=== PATIENT | male | born 1945 | race Caucasian/White ===

== ENCOUNTER → 2017-01-22 | Outpatient (CLI) | payer MEDICARE, OTHER | END | disposition home or self-care (01) | LOC: MW.CHFP 09:02 | PROVIDERS: ATTEND Student in an Organized Health Care Education/Training Program | DX: Z12.5 Encounter for screening for malignant neoplasm of prostate (principal); J02.9 Acute pharyngitis, unspecified; K59.00 Constipation, unspecified; L82.1 Other seborrheic keratosis; R39.12 Poor urinary stream | CPT/HCPCS: 36415; 87081; 87880; 99214; G0103 ==

== ENCOUNTER → 2017-02-15 | Outpatient (CLI) | payer MEDICARE, OTHER | LOC: MW.CHENT 08:00 | PROVIDERS: ATTEND Otolaryngology | DX: J02.9 Acute pharyngitis, unspecified (principal); J38.7 Other diseases of larynx | CPT/HCPCS: 31575; 99204 ==

== ENCOUNTER → 2017-03-15 | Outpatient (CLI) | payer MEDICARE, OTHER | LOC: MW.CHENT 14:22 | PROVIDERS: ATTEND Otolaryngology | DX: K21.9 Gastro-esophageal reflux disease without esophagitis (principal); I10 Essential (primary) hypertension; R07.0 Pain in throat; J38.7 Other diseases of larynx; J02.9 Acute pharyngitis, unspecified | CPT/HCPCS: 31575; 36415; 82565; 84520; 99214 ==

== ENCOUNTER → 2017-03-17 | Outpatient (CLI) | payer MEDICARE, OTHER ==
[~2017-03-17] MED LIST: Iopamidol 755 Mg/ML 100 ML Bottle IVPUSH STA
--- NOTE | 2017-03-18 10:57 | CT ---
EXAMINATION: CT soft tissue neck with contrast HISTORY: Acute pharyngitis COMPARISON: None TECHNIQUE: Axial CT images obtained through the neck following the administration of 80 mL of Isovue -370 in the left antecubital fossa. Coronal and sagittal reconstructions obtained. FINDINGS: The oropharynx and nasopharynx appears symmetric. The hypopharynx normal. The larynx and u pper trachea appear grossly unremarkable. No definite focal cord lesion identified. The parotid, sub mandibular, and thyroid glands appear normal. No abnormal cervical lymphadenopathy. The visualized p aranasal sinuses and mastoid air cells are clear. Degenerative changes are noted within the cervical spine without suspicious osseous findings. The maynor ng apices are clear. IMPRESSION: 1. No abnormal mass or asymmetry identified. 2. Degenerative changes noted within the cervical spine. 3. No acute findings noted.
== END ==
LOC: MW.DI 15:56
PROVIDERS: ATTEND Otolaryngology
DX: J02.9 Acute pharyngitis, unspecified (principal); J38.7 Other diseases of larynx; M47.812 Spondylosis without myelopathy or radiculopathy, cervical region
CPT/HCPCS: 70491; Q9967

== ENCOUNTER 2017-03-24 08:09 | Day surgery (SDC) | payer MEDICARE, OTHER ==
[~2017-03-24 08:09] MED LIST changes: +EPINEPHrine 1:1000 1 MG/ML SDV ONE; -Iopamidol 755 Mg/ML 100 ML Bottle IVPUSH STA; +Lactated Ringers 1,000 ML IV SCH
--- NOTE | 2017-03-24 08:55 | PCM.HPR ---
H & P Addendum review - H & P Addendum Review Date of Original H & P: 03/15/17 Date Reviewed: 03/24/17 Time Reviewed: 09:15 Patient was examined: No Changes
[2017-03-24] MEDS ORDERED: fentaNYL 100 MCG/2 ML SDV ONE ×2 (09:25→10:55)
[2017-03-24] MEDS ORDERED: Midazolam 1 MG/ML 2 ML SDV ONE (09:25)
[2017-03-24] MEDS ORDERED: Propofol 200 MG/20 ML SDV ONE (09:25)
[2017-03-24] MEDS ORDERED: Rocuronium 10 MG/ML 10 ML Syringe ONE (09:26)
[2017-03-24] MEDS ORDERED: Dexamethasone 4 MG/ML 5 ML MDV ONE (09:27)
[2017-03-24] MEDS ORDERED: Ondansetron 4 MG/2 ML SDV ONE (09:27)
[2017-03-24] MEDS ORDERED: Mineral Oil/Petrolatum Ophth Oint 3.5 GM Tube ONE (09:28)
--- NOTE | 2017-03-24 09:51 | PCM.PREANE ---
Preanesthetic Assessment - Anesthesia/Transfusion/Family Hx Anesthesia History: Prior Anesthesia Without Reaction Family History of Anesthesia Reaction: No Transfusion History: No Prior Transfusion(s) - Review of Systems General: No Symptoms Pulmonary: No Symptoms Cardiovascular: No Symptoms Gastrointestinal: No symptoms Neurological: No Symptoms - Physical Assessment NPO Status Date: 03/23/17 NPO Status Time: 21:00 O2 Sat by Pulse Oximetry: 95 Respiratory Rate: 16 Vital Signs: Last Vital Signs Temp 36.3 C 03/24/17 08:44 Pulse 64 03/24/17 08:44 Resp 16 03/24/17 08:44 BP 124/68 03/24/17 08:44 Pulse Ox 95 03/24/17 08:44 Height: 1.73 m Weight: 97.069 kg ASA Class: 2 Mental Status: Alert & Oriented x3 Airway Class: Mallampati = 1 Dentition: Reports: Normal Dentition ROM/Head Extension: Full Lungs: Clear to auscultation, Normal respiratory effort Cardiovascular: Regular Rate, Regular Rhythm - Allergies Allergies/Adverse Reactions: Allergies Allergy/AdvReac Type Severity Reaction Status Date / Time erythromycin base Allergy Anxiety Verified 12/27/15 13:39 [Erythromycin Base] - Acknowledgements Anesthesia Type Planned: General Anesthesia Pt an Appropriate Candidate for the Planned Anesthesia: Yes Alternatives and Risks of Anesthesia Discussed w Pt/Guardian: Yes Pt/Guardian Understands and Agrees with Anesthesia Plan: Yes Additional Comments: had EKG 3 days ago in clinic, will check QTC on that EKG before transport to OR PreAnesthesia Questionnaire HEENT History: Reports: Other (See Below) Other HEENT History: constant need to clear his throat, frequent hoarseness, wears glasses, has dental implants Cardiovascular History: Reports: Afib, High Cholesterol, Hypertension Other Cardiovascular History: hx of arrythmia, on Fleckanide x 4-5 years without recurrance. Respiratory History: Reports: Sleep Apnea Other Respiratory History: does not use CPAP Gastrointestinal History: Reports: GERD Genitourinary History: Reports: BPH Musculoskeletal History: Reports: Back Pain, Chronic, Neck Pain, Chronic Neurological History: Reports: Headaches, Chronic, Migraines Psychiatric History: Reports: Depression Endocrine/Metabolic History: Reports: Obesity/BMI 30+ Hematologic History: Reports: None Immunologic History: Reports: None Oncologic (Cancer) History: Reports: None Dermatologic History: Reports: None - Past Surgical History Head Surgeries/Procedures: Reports: None HEENT Surgical History: Reports: Other (See Below) Other HEENT Surgeries/Procedures: Nose surgery Cardiovascular Surgical History: Reports: None Respiratory Surgical History: Reports: None GI Surgical History: Reports: None Male Surgical History: Reports: None Endocrine Surgical History: Reports: None Neurological Surgical History: Reports: None Musculoskeletal Surgical History: Reports: None Oncologic Surgical History: Reports: None Dermatological Surgical History: Reports: None - SUBSTANCE USE Smoking Status *Q: Never Smoker Recreational Drug Use History: No - HOME MEDS Home Medications: Home Meds Aspirin [Low Dose Aspirin EC] 81 mg PO DAILY 12/27/15 [History] Escitalopram [Lexapro] 10 mg PO DAILY 12/27/15 [History] Flecainide Acetate 100 mg PO BID 12/27/15 [History] Fluticasone Propionate [Flonase] 1 spray NASBOTH BID 12/27/15 [History] Losartan Potassium 50 mg PO DAILY 12/27/15 [History] Omeprazole [Prilosec] 40 mg PO BID 12/27/15 [History] Pravastatin Sodium [Pravachol] 40 mg PO BEDTIME 12/27/15 [History] Propranolol HCl [Propranolol HCl ER] 120 mg PO DAILY 12/27/15 [History] SUMAtriptan Succinate [Imitrex] 100 mg PO ASDIRECTED PRN 12/27/15 [History] Tamsulosin HCl 0.4 mg PO DAILY 12/27/15 [History] - CURRENT (IN HOUSE) MEDS Current Meds: Current Medications Lactated Ringer's (Ringers, Lactated) 1,000 mls @ 100 mls/hr IV ASDIRECTED PASTORA Last Admin: 03/24/17 08:35 Dose: 100 mls/hr Discontinued Medications Dexamethasone (Dexamethasone) Confirm Administered Dose 20 mg .ROUTE .STK-MED ONE Stop: 03/24/17 09:28 Epinephrine HCl (Adrenalin 1:1000) Confirm Administered Dose 3 mg .ROUTE .STK- MED ONE Stop: 03/24/17 07:13 Fentanyl (Sublimaze) Confirm Administered Dose 100 mcg .ROUTE .STK-MED ONE Stop: 03/24/17 09:26 Lidocaine HCl (Xylocaine-Mpf 1%) Confirm Administered Dose 5 ml .ROUTE .STK-MED ONE Stop: 03/24/17 09:27 Midazolam HCl (Versed 1 Mg/Ml) Confirm Administered Dose 2 mg .ROUTE .STK-MED ONE Stop: 03/24/17 09:26 Mineral Oil/White Petrolatum (Lacri-Lube S.O.P Oint) Confirm Administered Dose 3.5 gm .ROUTE .STK-MED ONE Stop: 03/24/17 09:29 Ondansetron HCl (Zofran) Confirm Administered Dose 4 mg .ROUTE .STK-MED ONE Stop: 03/24/17 09:28 Propofol (Diprivan 20 Ml) Confirm Administered Dose 200 mg .ROUTE .STK-MED ONE Stop: 03/24/17 09:26 Rocuronium [place] (Zemuron) Confirm Administered Dose 100 mg .ROUTE .STK-MED ONE Stop: 03/24/17 09:27
[2017-03-24] MEDS ORDERED: fentaNYL 100 MCG/2 ML SDV IVPUSH PRN (10:09)
--- NOTE | 2017-03-24 10:17 | PCM.SN ---
- Free Text/Narrative Note: QTC was 460 on 03/22, OK to use sevoflurane and ondansetron as needed.
[2017-03-24] MEDS ORDERED: Succinylcholine/Normal Saline 200 MG/10 ML Syringe ONE (10:24)
--- NOTE | 2017-03-24 10:27 | PCM.OPNOTE ---
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 A time out was performed.General anesthesia was administered with a size 5 MLB tube and this was taped on the left angle of mouth. Patient was appropriately positioned. Upper and lower teeth / gum worrell were placed. A Lisy laryngoscope was positioned and suspended. A zero degree laryngeal telescope was used to examine the larynx and pictures were taken. An operating microscope was brought in and biopsies were obtained from the left vocal cord. Post operative photos were taken. This concluded the procedure. Hemostasis was ensured. The laryngoscope and gum worrell were removed. Lips, gums and teeth were intact. Follow up: In 1 week for pathology Disposition : PACU for recovery
[2017-03-24] MEDS ORDERED: Neostigmine Methylsulfate 1 MG/ML 5 ML Syringe ONE (10:43)
--- NOTE | 2017-03-24 11:57 | PCM.POSTAN ---
POST ANESTHESIA ASSESSMENT - MENTAL STATUS Mental Status: alert, oriented - RESPIRATORY Respiratory Status: respiratory rate WNL, airway patent, O2 saturation stable - CARDIOVASCULAR CV Status: pulse rate WNL, blood pressure stable - GASTROINTESTINAL GI Status: no symptoms - PAIN Pain Score: 0 - POST OP HYDRATION Hydration Status: adequate & stable
[2017-03-24 13:43] VITALS: BP 119/65
--- NOTE | 2017-03-24 13:56 | PCM48HPAN ---
Post Anesthesia Note - EVALUATION WITHIN 48HRS OF ANESTHETIC Vital Signs in Normal Range: Yes Patient Participated in Evaluation: Yes Respiratory Function Stable: Yes Airway Patent: Yes Cardiovascular Function Stable: Yes Hydration Status Stable: Yes Pain Control Satisfactory: Yes Nausea and Vomiting Control Satisfactory: Yes Mental Status Recovered: Yes
== END 2017-03-24 13:43 | disposition home or self-care (01) ==
LOC: MW.SDS 08:09
PROVIDERS: ATTEND Otolaryngology
DX: J38.3 Other diseases of vocal cords (principal); I10 Essential (primary) hypertension; F32.9 Major depressive disorder, single episode, unspecified; E78.00 Pure hypercholesterolemia, unspecified; K21.9 Gastro-esophageal reflux disease without esophagitis; G47.30 Sleep apnea, unspecified; Z88.1 Allergy status to other antibiotic agents; Z87.891 Personal history of nicotine dependence; Z79.899 Other long term (current) drug therapy
CPT/HCPCS: 31536; 88305; J0171; J1100; J2250; J2405; J3010; J7120; 00320; J2704

== ENCOUNTER → 2017-03-30 | Outpatient (CLI) | payer MEDICARE, OTHER | LOC: MW.CHENT 08:00 | PROVIDERS: ATTEND Otolaryngology | DX: J38.7 Other diseases of larynx (principal) | CPT/HCPCS: G0463 ==

== ENCOUNTER 2018-02-11 10:30 | Day surgery (SDC) | payer MEDICARE, OTHER ==
[~2018-02-11 10:30] MED LIST changes: -EPINEPHrine 1:1000 1 MG/ML SDV ONE; +Propofol 200 MG/20 ML SDV ONE
[2018-02-11] MEDS ORDERED: fentaNYL 100 MCG/2 ML SDV ONE (10:52)
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
--- NOTE | 2018-02-11 11:31 | PCM.OPNOTE ---
- General Post-Op/Procedure Note Date of Surgery/Procedure: 02/11/18 Operative Procedure(s): egd w bx Findings: see dict [id number] Pre Op Diagnosis: dysphagia/gerd Post-Op Diagnosis: Same Anesthesia Technique: Moderate Sedation Primary Surgeon: Alirio Roy Pathology: egd bx Complications: None Condition: Good
[2018-02-11 11:50] VITALS: BP 174/78
--- NOTE | 2018-02-11 13:25 | OR ---
SURGEON: Alirio Roy MD DATE OF PROCEDURE: 02/11/2018 PREOPERATIVE DIAGNOSES: 1. Dysphagia. 2. Acid reflux. POSTOPERATIVE DIAGNOSIS: Gastritis. PROCEDURE PERFORMED: EGD with biopsy. COMPLICATIONS: None. PROCEDURE IN DETAIL: EGD: The patient was taken to the endoscopy room, and with the MIX MAKER, Diprivan was administered. A well-lubricated EGD scope was gently inserted through the oropharynx, down the esophagus, passing through the gastroesophageal junction, into the stomach. The mucosa was examined upon the passage. Any etiology will be noted. Once in the stomach, we continued to advance to the distal antrum, passed through the pylorus into the second portion of the duodenum. Again, the mucosa was examined for any abnormality and etiology. The scope was then retrieved back to the stomach and then retroflexed to look at the fundus of the stomach. If a biopsy was indicated, we will biopsy the antrum, body, and gastroesophageal junction. The air will be sucked out while the scope is retrieved to reduce the patient's discomfort. The patient tolerated the procedure well. There were no intraoperative complications. Dr. Roy was present through the whole procedure. Prior to surgery, a time-out had been called, the patient identified, procedure identified and antibiotic administered. FINDINGS: The patient is easily sedated with MIX MAKER and Diprivan. The patient is soundly snoring. Oropharynx and proximal esophagus are free of disease. No stricture, inflammation, and distal esophagus at a distance of 40 with some skipped lesion of salmon color change suggests moderate acid reflux. Stomach rugae is normal in appearance. There is no blood, bile, or food particle. Antrum is very inflamed and several areas are thickened and inflamed, those places were biopsied. Duodenum was grossly normal. Scope retrieved back to the stomach and retroflexed and looked at the stomach. There is no hiatal hernia. Biopsy done of antrum and lesser curvature where the inflammation and body and GE junction at 40 and sucked out the air while scope pulling out. MONTY / ARELI /[id number]
== END 2018-02-11 12:09 | disposition home or self-care (01) ==
LOC: MW.SDS 10:30
PROVIDERS: ATTEND Surgery
DX: K29.50 Unspecified chronic gastritis without bleeding (principal); K20.9 Esophagitis, unspecified; F32.9 Major depressive disorder, single episode, unspecified; K21.9 Gastro-esophageal reflux disease without esophagitis; E78.00 Pure hypercholesterolemia, unspecified; I10 Essential (primary) hypertension; G47.30 Sleep apnea, unspecified; Z88.1 Allergy status to other antibiotic agents; Z79.899 Other long term (current) drug therapy; Z87.891 Personal history of nicotine dependence
CPT/HCPCS: 43239; J3010; J7120; 00731; 88305; 88312; J2704

== ENCOUNTER 2020-09-21 00:20 | Emergency (ER) | payer MEDICARE, OTHER ==
[2020-09-21] MEDS ORDERED: Sodium Chloride 0.9% 10 ML Syringe FLUSH PRN (00:26)
[2020-09-21] MEDS ORDERED: Sodium Chloride 0.9% 2.5 ML Syringe FLUSH PRN (00:26)
[2020-09-21] MEDS ORDERED: Ondansetron 4 MG/2 ML SDV IVPUSH ONE (00:26)
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
[2020-09-21 01:13] LABS: BLOOD UREA NITROGEN,BUN 12 mg/dL (7.0-18.0); CHLORIDE,CL 97 mmol/L (98-107); GLUCOSE RANDOM 134 mg/dL (74-106); LIPASE 177 U/L (73-393); POTASSIUM,K 4.1 mmol/L (3.5-5.1); SODIUM,NA 130 mmol/L (136-148)
--- NOTE | 2020-09-21 01:23 | CR ---
INDICATION: Weakness and COVID-19 positive TECHNIQUE: Chest radiograph 1 view COMPARISON: 03/22/2019 FINDINGS: Mediastinum: The mediastinum is normal in appearance. The heart silhouette is normal in size and morphology. Lung: Patchy, wispy airspace densities are present within the right midlung zone and bilateral lung bases suggestive of COVID-19 infection. No sign of pleural effusion seen. No pneumothorax is identified. Bone and Soft tissue: Unremarkable for age. IMPRESSION: 1. Patchy, wispy airspace densities are present within the right midlung zone and bilateral lung bases suggestive of COVID-19 infection. Dictated by Jt Yanez MD @ 09/21/2020 1:21:52 AM Dictated by: Jt Yanez MD @ 09/21/2020 01:22:12 (Electronically Signed)
[2020-09-21] MEDS ORDERED: Promethazine 25 MG Tab PO STA (01:51)
[2020-09-21 02:08] VITALS: BP 119/51; PULSE 76
== END 2020-09-21 02:33 | disposition home or self-care (01) ==
LOC: MW.ED 00:20
DX: U07.1 COVID-19 (principal); J12.89 Other viral pneumonia; E87.1 Hypo-osmolality and hyponatremia; I10 Essential (primary) hypertension; E78.00 Pure hypercholesterolemia, unspecified; I48.91 Unspecified atrial fibrillation; F41.9 Anxiety disorder, unspecified; F32.9 Major depressive disorder, single episode, unspecified; E66.9 Obesity, unspecified; Z68.30 Body mass index [BMI] 30.0-30.9, adult; Z88.1 Allergy status to other antibiotic agents; Z79.899 Other long term (current) drug therapy; Z79.82 Long term (current) use of aspirin
CPT/HCPCS: 36415; 71045; 80053; 83690; 83880; 84484; 85025; 93005; 96374; 99285; A9270; J2405; 93010; 99283

== ENCOUNTER 2022-10-08 11:19 | Inpatient (IN) | payer MEDICARE, OTHER ==
[2022-10-08] MEDS ORDERED: cefTRIAXone 1 GM in Sodium Chloride 0.9% 100 ML IV ONE ×2 (11:25→12:00)
[2022-10-08] MEDS ORDERED: Sodium Chloride 0.9% 2.5 ML Syringe FLUSH PRN (11:25)
[2022-10-08] MEDS ORDERED: Sodium Chloride 0.9% 1,000 ML IV ONE ×3 (11:25→16:37)
[2022-10-08] MEDS ORDERED: Sodium Chloride 0.9% 10 ML Syringe FLUSH PRN (11:25)
[2022-10-08] MEDS ORDERED: Ondansetron 4 MG/2 ML SDV IVPUSH ONE (11:32)
[2022-10-08] MEDS ORDERED: HYDROmorphone 1 MG/ML Syringe IVPUSH ONE (11:35)
[2022-10-08] MEDS ORDERED: cefTRIAXone 1 GM AdvVial IV ONE (11:49)
[2022-10-08] MEDS ORDERED: Sodium Chloride 0.9% 100 ML ONE (11:51)
[2022-10-08] MEDS ORDERED: VANCOmycin 2 GM/400 ML 2 GM in Premix Bag 1 BAG IV ONE (12:00)
[2022-10-08 12:28] LABS: CORONAVIRUS COVID-19 NAA NEGATIVE (NEGATIVE); INFLUENZA A NAA NEGATIVE (NEGATIVE); INFLUENZA B NAA NEGATIVE (NEGATIVE)
[2022-10-08 12:41] LABS: CARBON DIOXIDE,CO2 22.8 mmol/L (21.0-32.0); POTASSIUM,K 3.8 mmol/L (3.5-5.1)
[2022-10-08] MEDS ORDERED: Iopamidol 755 MG/ML 500 ML Multipack Bottle IVPUSH STA (13:55)
[2022-10-08] MEDS ORDERED: Acetaminophen 500 MG Tab PO ONE (15:27)
[2022-10-08] MEDS ORDERED: Pantoprazole 40 MG Tab.CR PO STA (16:46)
[2022-10-08] MEDS ORDERED: Piperacillin/Tazobactam 4.5 GM in Sodium Chloride 0.9% 100 ML IV ONE (17:28)
[2022-10-08] MEDS ORDERED: Enoxaparin 100 MG/1 ML Syringe SUBCUT ONE (19:50)
[2022-10-08] MEDS ORDERED: Norepinephrine 4 MG in Dextrose 5% in Water 246 ML IV SCH ×2 (20:00)
[2022-10-08] MEDS ORDERED: Albuterol/Ipratropium 3.0-0.5 MG/3 ML Neb Soln NEB PRN (22:32)
[2022-10-08] MEDS ORDERED: Acetaminophen/Butalbital/Caffeine 325-50-40 MG Tab PO PRN (23:00)
[2022-10-08] MEDS: Lactated Ringers 1,000 ML IV SCH (23:12)
[2022-10-08] MEDS: Pantoprazole 40 MG in Sodium Chloride 0.9% 10 ML IVPUSH SCH (23:16)
[2022-10-09] MEDS ORDERED: Piperacillin/Tazobactam 4.5 GM in Sodium Chloride 0.9% 100 ML IV SCH (01:00)
[2022-10-09] MEDS ORDERED: Sodium Chloride 0.9% 500 ML IV SCH (04:45)
[2022-10-09] MEDS: Ondansetron 4 MG/2 ML SDV IVPUSH PRN (06:55)
[2022-10-09] MEDS: Piperacillin/Tazobactam 4.5 GM in Sodium Chloride 0.9% 100 ML IV SCH ×2 (08:15→14:31)
[2022-10-09] MEDS ORDERED: Promethazine 25 MG/ML SDV IM ONE (08:18)
[2022-10-09] MEDS: Enoxaparin 40 MG/0.4 ML Syringe SUBCUT SCH (08:18)
[2022-10-09 08:54] LABS: CARBON DIOXIDE,CO2 22.4 mmol/L (21.0-32.0); POTASSIUM,K 3.6 mmol/L (3.5-5.1)
[2022-10-09] MEDS ORDERED: Sodium Chloride 0.9% 10 ML Syringe FLUSH PRN (09:17)
[2022-10-09] MEDS ORDERED: Sodium Chloride 0.9% 2.5 ML Syringe FLUSH PRN (09:17)
[2022-10-09] MEDS: Lactated Ringers 1,000 ML IV SCH ×2 (09:51→21:28)
[2022-10-09] MEDS ORDERED: Potassium Phosphates 15 MMOLE, Magnesium Sulfate 2 GM in Sodium Chloride 0.9% 500 ML IV ONE (10:00)
[2022-10-09] MEDS ORDERED: Ketorolac 30 MG/ML SDV IVPUSH ONE (10:07)
[2022-10-09] MEDS ORDERED: Metoclopramide 10 MG/2 ML SDV IVPUSH ONE (10:07)
[2022-10-09] MEDS: Acetaminophen 325 MG Tab PO PRN (17:14)
[2022-10-09] MEDS ORDERED: Lactated Ringers 1,000 ML IV SCH (17:30)
[2022-10-09] MEDS ORDERED: Meropenem Premix 50 ML IV ONE ×2 (17:37→18:15)
[2022-10-09] MEDS ORDERED: Meropenem Premix 50 ML IV SCH ×2 (17:45→17:47)
[2022-10-09] MEDS: Meropenem 2 GM in Sodium Chloride 0.9% 100 ML IV SCH (18:14)
[2022-10-09] MEDS: Pantoprazole 40 MG in Sodium Chloride 0.9% 10 ML IVPUSH SCH (21:51)
[2022-10-10] MEDS: Meropenem 2 GM in Sodium Chloride 0.9% 100 ML IV SCH ×3 (01:44→17:23)
[2022-10-10] MEDS ORDERED: Metoprolol Tartrate 5 MG/5 ML SDV IVPUSH ONE (05:20)
[2022-10-10] MEDS: Aluminum Hydroxide/Magnesium Hydroxide/Simethicone XS Susp 30 ML Cup PO SCH ×2 (05:29→08:39)
[2022-10-10] MEDS: Metoprolol Succinate 50 MG Tab.ER PO SCH (05:29)
[2022-10-10 07:17] LABS: CARBON DIOXIDE,CO2 28.1 mmol/L (21.0-32.0); POTASSIUM,K 3.6 mmol/L (3.5-5.1)
[2022-10-10] MEDS: Lactated Ringers 1,000 ML IV SCH ×3 (07:28→23:53)
[2022-10-10] MEDS: guaiFENesin/Dextromethorphan 100-10 MG/5 ML Soln 10 ML Cup PO PRN ×2 (07:48→15:29)
[2022-10-10] MEDS: Enoxaparin 40 MG/0.4 ML Syringe SUBCUT SCH (08:39)
[2022-10-10] MEDS: Acetaminophen/Butalbital/Caffeine 325-50-40 MG Tab PO PRN ×2 (10:19→18:29)
[2022-10-10] MEDS ORDERED: Potassium Phosphates 15 MMOLE in Sodium Chloride 0.9% 500 ML IV ONE (12:30)
[2022-10-10] MEDS ORDERED: Aluminum Hydroxide/Magnesium Hydroxide/Simethicone XS Susp 30 ML Cup PO PRN (12:30)
[2022-10-10] MEDS: Tamsulosin 0.4 MG Cap.ER PO SCH (12:33)
[2022-10-10] MEDS: VANCOmycin 1.5 GM/300 ML 1.5 GM in Premix Bag 1 BAG IV SCH (12:34)
[2022-10-10] MEDS: Phosphorus #1 250 MG Tab PO SCH ×3 (12:34→23:49)
[2022-10-10] MEDS: Escitalopram 10 MG Tab PO SCH (12:34)
[2022-10-10] MEDS: Ondansetron 4 MG/2 ML SDV IVPUSH PRN (16:44)
[2022-10-10] MEDS: Acetaminophen 325 MG Tab PO PRN (16:50)
[2022-10-10] MEDS ORDERED: Ondansetron 4 MG/2 ML SDV IVPUSH ONE (18:16)
[2022-10-10] MEDS ORDERED: Ketorolac 30 MG/ML SDV IVPUSH ONE (18:46)
[2022-10-10] MEDS: Pravastatin 40 MG Tab PO SCH (21:09)
[2022-10-10] MEDS: Pantoprazole 40 MG in Sodium Chloride 0.9% 10 ML IVPUSH SCH (23:43)
[2022-10-11] MEDS: Meropenem 2 GM in Sodium Chloride 0.9% 100 ML IV SCH ×3 (02:24→18:07)
[2022-10-11 06:35] LABS: CARBON DIOXIDE,CO2 30.5 mmol/L (21.0-32.0); POTASSIUM,K 3.8 mmol/L (3.5-5.1)
[2022-10-11] MEDS: Phosphorus #1 250 MG Tab PO SCH ×3 (07:04→18:14)
[2022-10-11] MEDS: VANCOmycin 1.5 GM/300 ML 1.5 GM in Premix Bag 1 BAG IV SCH (07:05)
[2022-10-11] MEDS ORDERED: Phosphorus #1 250 MG Tab PO ONE ×2 (07:43→08:22)
[2022-10-11] MEDS: Metoprolol Succinate 50 MG Tab.ER PO SCH (08:04)
[2022-10-11] MEDS: Tamsulosin 0.4 MG Cap.ER PO SCH (08:05)
[2022-10-11] MEDS: Enoxaparin 40 MG/0.4 ML Syringe SUBCUT SCH (08:05)
[2022-10-11] MEDS: Escitalopram 10 MG Tab PO SCH (08:05)
[2022-10-11] MEDS ORDERED: Polyethylene Glycol 3350 Powder 17 GM Packet PO PRN (09:26)
[2022-10-11] MEDS: Acetaminophen/Butalbital/Caffeine 325-50-40 MG Tab PO PRN ×3 (10:32→23:03)
[2022-10-11] MEDS: Acetaminophen 325 MG Tab PO PRN (12:44)
[2022-10-11] MEDS: Pravastatin 40 MG Tab PO SCH (20:45)
[2022-10-11] MEDS: Pantoprazole 40 MG in Sodium Chloride 0.9% 10 ML IVPUSH SCH (23:03)
[2022-10-11] MEDS: guaiFENesin/Dextromethorphan 100-10 MG/5 ML Soln 10 ML Cup PO PRN (23:17)
[2022-10-12] MEDS: VANCOmycin 1.5 GM/300 ML 1.5 GM in Premix Bag 1 BAG IV SCH (01:51)
[2022-10-12] MEDS: Meropenem 2 GM in Sodium Chloride 0.9% 100 ML IV SCH (02:19)
[2022-10-12 06:19] LABS: CARBON DIOXIDE,CO2 27.8 mmol/L (21.0-32.0); POTASSIUM,K 3.6 mmol/L (3.5-5.1)
[2022-10-12] MEDS ORDERED: Potassium Chloride 20 MEQ Tab.ER PO ONE (07:53)
[2022-10-12] MEDS: Tamsulosin 0.4 MG Cap.ER PO SCH (08:58)
[2022-10-12] MEDS: Metoprolol Succinate 50 MG Tab.ER PO SCH (08:58)
[2022-10-12] MEDS: Enoxaparin 40 MG/0.4 ML Syringe SUBCUT SCH (08:59)
[2022-10-12] MEDS: Phosphorus #1 250 MG Tab PO SCH ×4 (08:59→23:24)
[2022-10-12] MEDS: Escitalopram 10 MG Tab PO SCH (08:59)
[2022-10-12] MEDS: Levofloxacin 750 MG Tab PO SCH (10:18)
[2022-10-12] MEDS: Pravastatin 40 MG Tab PO SCH (20:22)
[2022-10-12] MEDS: Acetaminophen/Butalbital/Caffeine 325-50-40 MG Tab PO PRN (23:23)
[2022-10-13 06:24] LABS: CARBON DIOXIDE,CO2 28.1 mmol/L (21.0-32.0); POTASSIUM,K 3.7 mmol/L (3.5-5.1)
[2022-10-13] MEDS: Acetaminophen/Butalbital/Caffeine 325-50-40 MG Tab PO PRN (06:53)
[2022-10-13] MEDS ORDERED: Pantoprazole 40 MG Tab.CR PO SCH (07:30)
[2022-10-13] MEDS ORDERED: Potassium Chloride 20 MEQ Tab.ER PO ONE (08:11)
[2022-10-13] MEDS: Tamsulosin 0.4 MG Cap.ER PO SCH (08:26)
[2022-10-13] MEDS: Escitalopram 10 MG Tab PO SCH (08:26)
[2022-10-13] MEDS: Metoprolol Succinate 50 MG Tab.ER PO SCH (08:26)
[2022-10-13] MEDS: Enoxaparin 40 MG/0.4 ML Syringe SUBCUT SCH (08:27)
[2022-10-13] MEDS: Levofloxacin 750 MG Tab PO SCH (09:15)
[2022-10-13 11:48] VITALS: BP 156/80; PULSE 75
== END 2022-10-13 14:30 | disposition home or self-care (01) | DRG 862 ==
LOC: MW.ED 11:19 → MW.ICU 20:05 → MW.MS 10-11 11:25
PROVIDERS: ADMIT Student in an Organized Health Care Education/Training Program; ATTEND Student in an Organized Health Care Education/Training Program
PROC: 02HV33Z Insertion of Infusion Device into Superior Vena Cava, Percutaneous Approach (ICD-10-PCS; principal; 2022-10-08)
PROC: 3E033XZ Introduction of Vasopressor into Peripheral Vein, Percutaneous Approach (ICD-10-PCS; 2022-10-08)
DX: A41.9 Sepsis, unspecified organism (principal); Z98.890 Other specified postprocedural states; T81.44XA Sepsis following a procedure, initial encounter; A41.51 Sepsis due to Escherichia coli [E. coli]; R65.21 Severe sepsis with septic shock; T81.40XA Infection following a procedure, unspecified, initial encounter; I48.91 Unspecified atrial fibrillation; N40.0 Benign prostatic hyperplasia without lower urinary tract symptoms; E78.00 Pure hypercholesterolemia, unspecified; Z20.822 Contact with and (suspected) exposure to COVID-19; I10 Essential (primary) hypertension; G47.30 Sleep apnea, unspecified; K21.9 Gastro-esophageal reflux disease without esophagitis; F41.9 Anxiety disorder, unspecified; F32.A Depression, unspecified; N41.9 Inflammatory disease of prostate, unspecified; E83.42 Hypomagnesemia; E83.39 Other disorders of phosphorus metabolism; E78.2 Mixed hyperlipidemia; G43.909 Migraine, unspecified, not intractable, without status migrainosus; Z79.82 Long term (current) use of aspirin; Z87.442 Personal history of urinary calculi; Z79.899 Other long term (current) drug therapy; Z88.1 Allergy status to other antibiotic agents
CPT/HCPCS: 0240U; 36415; 71045; 71046; 74177; 80048; 80053; 80202; 81001; 83605; 83735; 84100; 84484; 85025; 85610; 87040; 87077; 87086; 87154; 87186; 93005; 93306; 96361; 96365; 96366; 96367; 96368; 96375; 97161; 99285; A9270-GY; C9113; J0696; J1170; J1650; J1885; J2185; J2405; J2543; J2550; J2765; J3370; J3475; J3490; J7030; J7040; J7050; J7120; Q9967

== ENCOUNTER 2023-12-15 08:29 | Day surgery (SDC) | payer MEDICARE, OTHER ==
[2023-12-15] MEDS ORDERED: propofoL 50 ML ONE (08:41)
[2023-12-15] MEDS: Lactated Ringers 1,000 ML IV SCH (08:47)
[2023-12-15 11:21] VITALS: PULSE 62
[2023-12-15 11:31] VITALS: BP 163/74
== END 2023-12-15 11:45 | disposition home or self-care (01) ==
LOC: MW.SDS 08:29
PROVIDERS: ATTEND Surgery
DX: Z12.11 Encounter for screening for malignant neoplasm of colon (principal); D12.0 Benign neoplasm of cecum; K57.30 Diverticulosis of large intestine without perforation or abscess without bleeding; E11.9 Type 2 diabetes mellitus without complications; I10 Essential (primary) hypertension; N40.0 Benign prostatic hyperplasia without lower urinary tract symptoms; K21.9 Gastro-esophageal reflux disease without esophagitis; I48.0 Paroxysmal atrial fibrillation; I25.10 Atherosclerotic heart disease of native coronary artery without angina pectoris; F32.A Depression, unspecified; E66.9 Obesity, unspecified; Z68.33 Body mass index [BMI] 33.0-33.9, adult; E78.00 Pure hypercholesterolemia, unspecified; Z87.891 Personal history of nicotine dependence; Z79.899 Other long term (current) drug therapy; Z88.1 Allergy status to other antibiotic agents
CPT/HCPCS: 45380; 88305; J2704; J7120; 00811; 99100

== ENCOUNTER 2024-08-10 13:26 | Inpatient (IN) | payer MEDICARE, OTHER ==
[2024-08-10] MEDS: Ondansetron 4 MG/2 ML SDV IVPUSH ONE (13:40)
[2024-08-10] MEDS: Ketorolac 30 MG/ML SDV IVPUSH ONE (13:40)
[2024-08-10] MEDS: Sodium Chloride 0.9% 1,000 ML IV ONE (13:40)
[2024-08-10 14:03] LABS: BASOPHILS ABSOLUTE AUTO 0.07 K/uL (0.00-0.20); BASOPHILS PERCENT AUTO 0.7 % (0.0-1.0); EOSINOPHILS ABSOLUTE AUTO 0.11 K/uL (0.00-0.45); EOSINOPHILS PERCENT AUTO 1.1 % (0.0-6.0); HEMATOCRIT 40.5 % (42.0-52.0); HEMOGLOBIN 14.1 g/dL (14.0-18.0); IMMATURE GRAN ABSOLUTE AUTO 0.03 K/uL (0.00-0.05); IMMATURE GRAN PERCENT AUTO 0.3 % (0.0-0.4); LYMPHOCYTES ABSOLUTE AUTO 1.27 K/uL (1.00-4.80); LYMPHOCYTES PERCENT AUTO 12.2 % (24.0-44.0); MEAN CORPUSCULAR HEMOGLOBIN 29.7 pg (28.0-32.0); MEAN CORPUSCULAR HGB CONC 34.8 g/dL (32.0-36.0); MEAN CORPUSCULAR VOLUME 85.3 fL (83.0-99.0); MEAN PLATELET VOLUME 10.9 fL (9.4-12.4); MONOCYTES PERCENT AUTO 11.5 % (0.0-8.0); NEUTROPHILS ABSOLUTE AUTO 7.77 K/uL (1.80-7.70); NEUTROPHILS PERCENT AUTO 74.2 % (41.0-71.0); PLATELET COUNT,PLT 162 K/uL (150-400); RED BLOOD CELL COUNT 4.75 M/uL (4.52-5.90); WHITE BLOOD CELL COUNT,WBC 10.45 K/uL (3.9-11.3)
[2024-08-10 14:28] LABS: A/G RATIO 1.2 (0.9-1.6); ALANINE AMINOTRANSFERASE,ALT 23 IU/L (14-63); ALBUMIN 3.9 g/dL (3.4-5.0); ALKALINE PHOSPHATASE 72 U/L (46-116); ASPARTATE AMNIOTRANSFERASE,AST 21 IU/L (15-37); BILIRUBIN TOTAL 0.7 mg/dL (0.2-1.0); BLOOD UREA NITROGEN,BUN 14 mg/dL (7.0-18.0); CALCIUM 8.6 mg/dL (8.5-10.1); CARBON DIOXIDE,CO2 22.2 mmol/L (21.0-32.0); CHLORIDE,CL 100 mmol/L (98-107); CREATININE 1.1 mg/dL (0.8-1.3); GLUCOSE RANDOM 160 mg/dL (74-106); LIPASE 36 U/L (16-77); POTASSIUM,K 3.6 mmol/L (3.5-5.1); PROTEIN TOTAL,TP 7.2 g/dL (6.4-8.2); SODIUM,NA 135 mmol/L (136-148)
[2024-08-10 14:29] LABS: ESTIMATED GFR 69 mL/min (>60)
[2024-08-10 14:35] LABS: CORONAVIRUS COVID-19 NAA POSITIVE (NEGATIVE); INFLUENZA A NAA NEGATIVE (NEGATIVE); INFLUENZA B NAA NEGATIVE (NEGATIVE)
[2024-08-10 15:33] LABS: BILIRUBIN,URINE NEGATIVE (NEGATIVE); COLOR,URINE YELLOW; GLUCOSE,URINE NEGATIVE (NEGATIVE); KETONES,URINE 40 mg/dL (NEGATIVE); LEUKOCYTE ESTERASE,URINE NEGATIVE (NEGATIVE); NITRITE,URINE NEGATIVE (NEGATIVE); OCCULT BLOOD,URINE SMALL (NEGATIVE); PH,URINE 8.5 (5.0-8.0); PROTEIN,URINE NEGATIVE (NEGATIVE); UROBILINOGEN,URINE 0.2 EU/dL (<2.0)
[2024-08-10 15:37] LABS: APPEARANCE,URINE HAZY
[2024-08-10 15:41] LABS: BACTERIA,URINE FEW (NEGATIVE); EPITHELIAL CELLS,URINE RARE (NONE-FEW); WBC,URINE 0-1 (0-5/HPF)
[2024-08-10] MEDS: Acetaminophen 500 MG Tab PO ONE (15:46)
[2024-08-10] MEDS ORDERED: Albuterol/Ipratropium 3.0-0.5 MG/3 ML Neb Soln NEB PRN (16:01)
[2024-08-10] MEDS ORDERED: Polyethylene Glycol 3350 Powder 17 GM Packet PO PRN (16:01)
[2024-08-10] MEDS ORDERED: Ondansetron 4 MG/2 ML SDV IVPUSH PRN (16:01)
[2024-08-10] MEDS ORDERED: Acetaminophen 650 MG Supp RECTAL PRN (16:01)
[2024-08-10] MEDS ORDERED: Acetaminophen 325 MG Tab PO PRN (16:01)
[2024-08-10] MEDS ORDERED: oxyCODONE 5 MG Tab PO PRN (16:01)
[2024-08-10] MEDS ORDERED: Non-Formulary Medication 1 Each (Docusate Sodium [Stool Softener] 100 MG Tablet) PO PRN (16:08)
[2024-08-10] MEDS ORDERED: Sodium Chloride 0.9% 1,000 ML IV SCH (16:15)
[2024-08-10] MEDS: Pantoprazole 40 MG in Sodium Chloride 0.9% 10 ML IVPUSH SCH (17:43)
[2024-08-10] MEDS: Enoxaparin 40 MG/0.4 ML Syringe SUBCUT SCH (17:43)
[2024-08-10] MEDS: REMDESIVIR 200 MG in Sodium Chloride 0.9% 250 ML IV ONE (17:51)
[2024-08-10] MEDS: Dexamethasone 4 MG Tab PO SCH (17:52)
[2024-08-10] MEDS: Ibuprofen 400 MG Tab PO ONE (19:45)
[2024-08-10] MEDS: atorvaSTATin 20 MG Tab PO SCH (21:47)
[2024-08-11 06:03] LABS: BASOPHILS ABSOLUTE AUTO 0.04 K/uL (0.00-0.20); BASOPHILS PERCENT AUTO 0.4 % (0.0-1.0); EOSINOPHILS ABSOLUTE AUTO 0.01 K/uL (0.00-0.45); EOSINOPHILS PERCENT AUTO 0.1 % (0.0-6.0); HEMATOCRIT 40.6 % (42.0-52.0); HEMOGLOBIN 13.5 g/dL (14.0-18.0); IMMATURE GRAN ABSOLUTE AUTO 0.02 K/uL (0.00-0.05); IMMATURE GRAN PERCENT AUTO 0.2 % (0.0-0.4); LYMPHOCYTES ABSOLUTE AUTO 1.66 K/uL (1.00-4.80); LYMPHOCYTES PERCENT AUTO 18.3 % (24.0-44.0); MEAN CORPUSCULAR HEMOGLOBIN 29.2 pg (28.0-32.0); MEAN CORPUSCULAR HGB CONC 33.3 g/dL (32.0-36.0); MEAN CORPUSCULAR VOLUME 87.9 fL (83.0-99.0); MEAN PLATELET VOLUME 11.4 fL (9.4-12.4); NEUTROPHILS ABSOLUTE AUTO 6.34 K/uL (1.80-7.70); PLATELET COUNT,PLT 168 K/uL (150-400); RED BLOOD CELL COUNT 4.62 M/uL (4.52-5.90); WHITE BLOOD CELL COUNT,WBC 9.07 K/uL (3.9-11.3)
[2024-08-11 06:29] LABS: A/G RATIO 0.9 (0.9-1.6); ALBUMIN 3.3 g/dL (3.4-5.0); BILIRUBIN TOTAL 0.4 mg/dL (0.2-1.0); CALCIUM 8.7 mg/dL (8.5-10.1); EST CRCL DRUG DOSING (CG) 59.85 mL/min; MAGNESIUM 1.9 mg/dL (1.8-2.4); POTASSIUM,K 3.9 mmol/L (3.5-5.1); PROTEIN TOTAL,TP 6.9 g/dL (6.4-8.2)
[2024-08-11] MEDS ORDERED: REMDESIVIR 100 MG in Sodium Chloride 0.9% 100 ML IV SCH (08:00)
[2024-08-11] MEDS: Tamsulosin 0.4 MG Cap.ER PO SCH (09:30)
[2024-08-11] MEDS: Escitalopram 10 MG Tab PO SCH (09:30)
[2024-08-11] MEDS: Losartan 50 MG Tab PO SCH (09:31)
[2024-08-11] MEDS: Metoprolol Succinate 50 MG Tab.ER PO SCH (09:31)
[2024-08-11] MEDS: guaiFENesin 600 MG Tab.ER PO SCH (09:52)
[2024-08-11] MEDS: Docusate Sodium 100 MG Cap PO PRN (12:24)
[2024-08-11] MEDS: Carboxymethylcellulose Sodium 0.5% Ophth Soln 0.4 ML UD Box of 30 EYEBOTH PRN (14:42)
[2024-08-11 16:57] LABS: ALBUMIN 3.6 g/dL (3.4-5.0); BILIRUBIN DIRECT 0.1 mg/dL (0.0-0.5); BILIRUBIN TOTAL 0.4 mg/dL (0.2-1.0); CALCIUM 9.1 mg/dL (8.5-10.1); CREATININE 1.1 mg/dL (0.8-1.3); EST CRCL DRUG DOSING (CG) 54.41 mL/min; POTASSIUM,K 4.3 mmol/L (3.5-5.1); PROTEIN TOTAL,TP 7.2 g/dL (6.4-8.2)
[2024-08-11] MEDS: PREDNISOLONE ACETATE 1% EYEBOTH SCH (17:13)
[2024-08-11] MEDS: OPTHALMIC EYEBOTH SCH (17:13)
[2024-08-11] MEDS: REMDESIVIR 100 MG in Sodium Chloride 0.9% 100 ML IV SCH (17:26)
[2024-08-12 08:30] LABS: HEMATOCRIT 39.4 % (42.0-52.0); HEMOGLOBIN 13.4 g/dL (14.0-18.0); MEAN CORPUSCULAR HEMOGLOBIN 29.8 pg (28.0-32.0); MEAN CORPUSCULAR VOLUME 87.8 fL (83.0-99.0); MEAN PLATELET VOLUME 11.1 fL (9.4-12.4); PLATELET COUNT,PLT 182 K/uL (150-400); RED BLOOD CELL COUNT 4.49 M/uL (4.52-5.90); WHITE BLOOD CELL COUNT,WBC 10.36 K/uL (3.9-11.3)
[2024-08-12 08:48] LABS: BAND PERCENT MAN 1 %; BASOPHILS PERCENT MAN 1 % (0-1); LYMPHOCYTES ABSOLUTE MAN 4.14 K/uL (1.00-4.80); LYMPHOCYTES PERCENT MAN 40 % (24-44); MONOCYTES ABSOLUTE MAN 1.86 K/uL (0.00-0.80); MONOCYTES PERCENT MAN 18 % (0-8); SEG NEUTROPHILS ABSOLUTE MAN 4.14 K/uL (1.80-7.70); SEG NEUTROPHILS PERCENT MAN 40 % (41-71)
[2024-08-12 08:51] LABS: ALBUMIN 3.5 g/dL (3.4-5.0); BILIRUBIN DIRECT 0.1 mg/dL (0.0-0.5); BILIRUBIN TOTAL 0.3 mg/dL (0.2-1.0); CALCIUM 8.9 mg/dL (8.5-10.1); EST CRCL DRUG DOSING (CG) 59.85 mL/min; POTASSIUM,K 4.3 mmol/L (3.5-5.1); PROTEIN TOTAL,TP 7.1 g/dL (6.4-8.2)
[2024-08-12 10:20] VITALS: BP 150/69; PULSE 64
[2024-08-12] MEDS: Ibuprofen 400 MG Tab PO ONE (12:57)
== END 2024-08-12 13:00 | disposition home or self-care (01) | DRG 177 ==
LOC: MW.ED 13:26 → MW.MS 15:43 → OBSVTOIN 08-11 09:16
PROVIDERS: ADMIT Family Medicine; ATTEND Family Medicine
PROC: XW033E5 Introduction of Remdesivir Anti-infective into Peripheral Vein, Percutaneous Approach, New Technology Group 5 (ICD-10-PCS; principal; 2024-08-10)
PROC: 3E0DX3Z Introduction of Anti-inflammatory into Mouth and Pharynx, External Approach (ICD-10-PCS; 2024-08-10)
DX: U07.1 COVID-19 (principal); J12.82 Pneumonia due to coronavirus disease 2019; J96.01 Acute respiratory failure with hypoxia; R09.02 Hypoxemia; K21.9 Gastro-esophageal reflux disease without esophagitis; E11.9 Type 2 diabetes mellitus without complications; N40.0 Benign prostatic hyperplasia without lower urinary tract symptoms; E66.9 Obesity, unspecified; E78.00 Pure hypercholesterolemia, unspecified; G89.29 Other chronic pain; F32.A Depression, unspecified; K59.09 Other constipation; G47.30 Sleep apnea, unspecified; I48.91 Unspecified atrial fibrillation; M54.9 Dorsalgia, unspecified; I10 Essential (primary) hypertension; Z98.49 Cataract extraction status, unspecified eye; Z79.52 Long term (current) use of systemic steroids; Z68.33 Body mass index [BMI] 33.0-33.9, adult; Z87.442 Personal history of urinary calculi; Z87.891 Personal history of nicotine dependence; Z98.890 Other specified postprocedural states; Z79.899 Other long term (current) drug therapy; Z86.0100 Personal history of colon polyps, unspecified; Z88.1 Allergy status to other antibiotic agents
CPT/HCPCS: 0240U; 36415; 71045; 80053; 81001; 82248; 82947; 83690; 83735; 85025; 93005; 96361; 96372; 96374; 96375; 99285; 93010; A9270-GY; G0378; J0248; J1650; J1885; J2405; J2470; J3490; J7030; J7050; J8540